=== PATIENT | female | born 1955 | race Caucasian/White ===

== ENCOUNTER 2017-05-15 14:41 | Observation (INO) | payer OTHER ==
[~2017-05-15] VITALS: Ht 167.6 cm; Wt 76.7 kg
[2017-05-15 15:13] LABS: HEMATOCRIT 39.6 % (36.0-46.0); HEMOGLOBIN 13.2 G/DL (11.9-15.5); MCH 28.6 PG (29.0-34.0); MCHC 33.3 G/DL (30.0-36.0); MCV 85.7 FL (83-99); PLATELET COUNT 354 K/uL (156-360); RBC DIS.WIDTH-CV 14.6 % (11.8-14.6); RBC DIS.WIDTH-SD 45.1 % (39-53); RED BLOOD COUNT 4.62 M/uL (3.80-5.20); WHITE BLOOD COUNT 10.8 K/uL (4.1-10.2)
[2017-05-15 15:37] LABS: CHLORIDE 101 mEq/L (99-109); POTASSIUM 3.1 mEq/L (3.7-5.4); SODIUM 139 mEq/L (136-147)
[2017-05-15 15:39] LABS: GLUCOSE 113 mg/dL (70-99)
[2017-05-15 15:42] LABS: CREATININE 0.8 mg/dL (0.6-1.3); GFR ESTIMATE (CALCULATED) > 59 mL/min/
[2017-05-15 15:43] LABS: UREA NITROGEN (BUN) 7 mg/dL (9-23)
[2017-05-15 20:19] LABS: TROP-I INTERPRETATION NEGATIVE; TROPONIN-I < 0.01 ng/mL (0.0-0.30)
[2017-05-15] MEDS ORDERED: QUETIAPINE FUM400 MG PO (21:35)
[2017-05-15 22:15] LABS: HDL CHOLESTEROL 33 MG/DL (Desirable>=50); LDL CHOLESTEROL 118 mg/dL (Desirable<100); NON-HDL CHOLESTEROL 176 mg/dL (Desirable<160); TOTAL CHOLESTEROL 209 mg/dL (Desirable<200); TRIGLYCERIDES 290 MG/DL (Normal: <150)
[2017-05-15 23:00] VITALS: BP 184/88
[2017-05-16 00:10] VITALS: BP 167/80
[2017-05-16 04:12] VITALS: BP 128/78
[2017-05-16 06:17] LABS: HEMATOCRIT 37.1 % (36.0-46.0); HEMOGLOBIN 12.1 G/DL (11.9-15.5); MCH 27.7 PG (29.0-34.0); MCHC 32.6 G/DL (30.0-36.0); MCV 84.9 FL (83-99); PLATELET COUNT 324 K/uL (156-360); RBC DIS.WIDTH-CV 14.6 % (11.8-14.6); RBC DIS.WIDTH-SD 45.7 % (39-53); RED BLOOD COUNT 4.37 M/uL (3.80-5.20); WHITE BLOOD COUNT 9.5 K/uL (4.1-10.2)
[2017-05-16 06:32] LABS: ALBUMIN 3.4 G/DL (3.2-4.8); ALKALINE PHOSPHATASE 110 IU/L (3-129); ALT (GPT) 6 IU/L (3-49); AST (GOT) 8 IU/L (2-34); CHLORIDE 104 MEQ/L (99-109); CREATININE 0.8 MG/DL (0.6-1.3); GFR ESTIMATE (CALCULATED) > 59 mL/min/; GLUCOSE 118 mg/dL (70-99); POTASSIUM 3.6 MEQ/L (3.7-5.4); SODIUM 142 MEQ/L (136-147); TOTAL BILIRUBIN 0.2 MG/DL (0.0-1.0); TOTAL PROTEIN 6.1 G/DL (6.4-8.3); UREA NITROGEN (BUN) 10 mg/dL (9-23)
[2017-05-16 07:28] VITALS: BP 138/80
[2017-05-16] MEDS ORDERED: ZESTRIL2.5 MG PO (09:27)
[2017-05-16] MEDS ORDERED: PRAVACHOL20 MG PO (09:27)
[2017-05-16] MEDS ORDERED: ASPIR-LOW81 MG PO (09:27)
[2017-05-16 11:51] VITALS: BP 141/81
[2017-05-17 09:40] LABS: HEMOGLOBIN A1c (GLYCOHEMOGLOB) 5.8 % (Below 5.7)
== END 2017-05-16 15:03 | disposition home or self-care (01) ==
LOC: EME 14:41 → EDOF 21:05 → ENRESERV 21:06 → 5WEST 22:39
PROVIDERS: Nurse Practitioner Adult Health
DX: I63.8 Other cerebral infarction (principal); I67.82 Cerebral ischemia; I10 Essential (primary) hypertension; E78.5 Hyperlipidemia, unspecified; F31.9 Bipolar disorder, unspecified; F17.210 Nicotine dependence, cigarettes, uncomplicated
CPT/HCPCS: 70450; 70551; 71046; 80048; 80053; 80061; 83036; 84484; 85027; 93005; 93880; 99281; 99285; G0378; G8978 GP CH; G8979 GP CH; G8980 GP CH; J0360; J1644; J2060

== ENCOUNTER → 2017-05-18 | Outpatient (CLI) | payer OTHER ==
[~2017-05-18] MED LIST: ASPIR-LOW81 MG PO; PRAVACHOL20 MG PO; QUETIAPINE FUM400 MG PO; ZESTRIL2.5 MG PO
== END | disposition home or self-care (01) ==
LOC: EKG 15:12
DX: I51.9 Heart disease, unspecified (principal)
CPT/HCPCS: 93306

== ENCOUNTER 2017-08-23 16:48 | Emergency (ER) | payer OTHER ==
[~2017-08-23] VITALS: Ht 167.6 cm; Wt 72.2 kg
[2017-08-23 18:40] LABS: HEMOGLOBIN 11.5 G/DL (11.9-15.5); MCHC 32.9 G/DL (30.0-36.0); MCV 85.2 FL (83-99); PLATELET COUNT 346 K/uL (156-360); RBC DIS.WIDTH-SD 46.9 % (39-53); RED BLOOD COUNT 4.11 M/uL (3.80-5.20); WHITE BLOOD COUNT 12.6 K/uL (4.1-10.2)
[2017-08-23 18:58] LABS: CHLORIDE 103 mEq/L (99-109); POTASSIUM 3.2 mEq/L (3.7-5.4); SODIUM 143 mEq/L (136-147)
[2017-08-23 19:00] LABS: GLUCOSE 102 mg/dL (70-99)
[2017-08-23 19:04] LABS: CREATININE 0.7 mg/dL (0.6-1.3); GFR ESTIMATE (CALCULATED) > 59 mL/min/; UREA NITROGEN (BUN) 8 mg/dL (9-23)
[2017-08-23 19:09] LABS: TROP-I INTERPRETATION NEGATIVE; TROPONIN-I < 0.01 ng/mL (0.0-0.30)
[2017-08-23 21:49] LABS: APPEARANCE CLEAR ((CLEAR)); BILIRUBIN NEGATIVE; BLOOD NEGATIVE; COLOR STRAW ((YELLOW)); GLUCOSE (STRIP) NEGATIVE; KETONES NEGATIVE; LEUKOCYTES SMALL; NITRITE NEGATIVE; PROTEIN (STRIP) NEGATIVE; SPECIFIC GRAVITY 1.003 (1.000-1.030); UROBILINOGEN 0.2 MG/DL (0.2-1.0)
[2017-08-23 21:59] LABS: BACTERIA NONE SEEN /HPF; EPITHELIAL CELLS RARE /HPF; MUCUS NONE SEEN /LPF; RED BLOOD CELLS 0-5 /HPF (0-5); UCUL ADDED? NO; WHITE BLOOD CELLS 0-5 /HPF (0-5)
[2017-08-23] MEDS ORDERED: PREDNISONE20 MG PO (22:56)
[2017-08-23 23:16] VITALS: BP 152/92
== END 2017-08-23 23:17 | disposition home or self-care (01) ==
LOC: EME 16:48
PROVIDERS: Physician Assistant
DX: I95.1 Orthostatic hypotension (principal); J44.1 Chronic obstructive pulmonary disease with (acute) exacerbation; E78.5 Hyperlipidemia, unspecified; F31.9 Bipolar disorder, unspecified; F17.200 Nicotine dependence, unspecified, uncomplicated
CPT/HCPCS: 71046; 80048; 81003; 83605; 84484; 85027; 93005; 94640; 99281; 99285; J2930; J7030

== ENCOUNTER → 2017-10-20 | Outpatient (CLI) | payer OTHER ==
[~2017-10-20] MED LIST changes: +FOLIC ACID1 MG PO; +KLOR-CON M2020 MEQ PO; +LIPITOR80 MG PO; +PREDNISONE20 MG PO; +PRINIVIL5 MG PO; +VITAMIN B125000 MCG PO; +XANAX0.5 MG PO
[2017-10-20 09:36] LABS: HEMOGLOBIN 11.8 G/DL (11.9-15.5); MCH 25.9 PG (29.0-34.0); MCHC 31.9 G/DL (30.0-36.0); MCV 81.3 FL (83-99); PLATELET COUNT 354 K/uL (156-360); RBC DIS.WIDTH-SD 47.7 % (39-53); RED BLOOD COUNT 4.55 M/uL (3.80-5.20)
[2017-10-20 09:46] LABS: INTER. NORMALIZED RATIO 1.2
[2017-10-20 09:49] LABS: PTT 31.9 SEC (25-37)
== END | disposition home or self-care (01) ==
LOC: OPR 08:32 → EDSTATUS 09:00
PROVIDERS: Internal Medicine Hematology & Oncology
PROC: 0FB13ZX Excision of Right Lobe Liver, Percutaneous Approach, Diagnostic (ICD-10-PCS; principal; 2017-10-20)
DX: C78.7 Secondary malignant neoplasm of liver and intrahepatic bile duct (principal); R63.4 Abnormal weight loss; Z86.73 Personal history of transient ischemic attack (TIA), and cerebral infarction without residual deficits; I10 Essential (primary) hypertension; J44.9 Chronic obstructive pulmonary disease, unspecified; F17.210 Nicotine dependence, cigarettes, uncomplicated; F31.9 Bipolar disorder, unspecified; Z79.82 Long term (current) use of aspirin; Z80.8 Family history of malignant neoplasm of other organs or systems
CPT/HCPCS: 77012; 85027; 85610; 85730; 88305; 88341 TC; 88342 TC; J3010

== ENCOUNTER 2017-11-11 07:31 | Day surgery (SDC) | payer OTHER ==
[~2017-11-11] VITALS: Ht 167.6 cm; Wt 66.0 kg
[~2017-11-11 07:31] MED LIST changes: +ZOLOFT25 MG PO
== END 2017-11-11 10:23 | disposition home or self-care (01) ==
LOC: CATH 07:31
DX: Z45.2 Encounter for adjustment and management of vascular access device (principal); I87.8 Other specified disorders of veins; C15.9 Malignant neoplasm of esophagus, unspecified; Z79.82 Long term (current) use of aspirin
CPT/HCPCS: C1751; C1894; J0690; J1644; J2250; J3010; S0020